=== PATIENT | female | born 1970 | race Caucasian/White ===

== ENCOUNTER → 2020-05-09 | Outpatient (CLI) | payer BC ==
[2004-03-28 01:15] VITALS: TEMP 97.3
[~2020-05-09] MED LIST: LEVOTHROID0.05 MG PO; PEPCID 20MG TAB20 MG PO; SPRINTEC 35 MCG1 TAB PO; SYNTHROID0.112 MG/T PO; ZYRTEC10 MG PO
== END ==
LOC: MC.RAD 15:30
DX: Z12.31 Encounter for screening mammogram for malignant neoplasm of breast (principal)